=== PATIENT | male | born 1985 | race Caucasian/White ===

== ENCOUNTER → 2022-03-29 | Day surgery (SDC) | payer OTHER ==
[~2022-03-29] MED LIST: Ketamine 200 MG/20 ML MDV ONE; Lactated Ringers 1,000 ML IV ONE; Lidocaine 2% 20 ML MDV ONE; Propofol 200 MG/20 ML SDV ONE; fentaNYL 50 MCG/ML SDV ONE
== END ==
LOC: CC.SDS 06:00
PROVIDERS: ATTEND Surgery
DX: K21.00 Gastro-esophageal reflux disease with esophagitis, without bleeding (principal); K31.A0 Gastric intestinal metaplasia, unspecified; K44.9 Diaphragmatic hernia without obstruction or gangrene; K22.70 Barrett's esophagus without dysplasia; Z79.899 Other long term (current) drug therapy
CPT/HCPCS: 00731; 43239; 87081; J2704; J3010; J7120; 00126

== ENCOUNTER 2022-06-08 14:25 | Emergency (ER) | payer OTHER ==
[2022-06-08 14:33] VITALS: BP 124/75; PULSE 86
== END 2022-06-08 15:13 | disposition home or self-care (01) ==
LOC: CC.ED 14:25
DX: J10.1 Influenza due to other identified influenza virus with other respiratory manifestations (principal); Z20.822 Contact with and (suspected) exposure to COVID-19
CPT/HCPCS: 87804; 99283; U0002